=== PATIENT | female | born 1930 | race Caucasian/White ===

== ENCOUNTER 2017-12-19 11:35 | Inpatient (IN) | payer OTHER ==
[2017-12-19 11:52] VITALS: BMI 33.4
--- NOTE | 2017-12-19 11:59 | PDOC ---
History of Present Illness - General Chief Complaint: Respiratory Stated Complaint: COUGH, DIFF BREATHING, FEVER Time Seen by Provider: 12/19/17 11:39 History Source: Patient Exam Limitations: No Limitations - History of Present Illness Initial Comments: 87 yo F history HL, COPD on home O2, afib presenting with weakness, fever, difficulty breathing for the past few days. She has had poor appetite, poor PO intake. Notes SOB despite her home O2. +Dry cough. No N/V/D. Past History - Past Medical History Allergies/Adverse Reactions: Allergies Allergy/AdvReac Type Severity Reaction Status Date / Time clarithromycin [From Biaxin] Allergy Verified 12/19/17 14:06 nifedipine [From Procardia] Allergy Verified 12/19/17 11:37 penicillin G Allergy Verified 12/19/17 11:37 Penicillins Allergy Verified 12/19/17 14:07 rofecoxib [From Vioxx] Allergy Verified 12/19/17 11:37 rivaroxaban [From Xarelto] AdvReac Intermediate GI bleeding Verified 12/19/17 11 :37 furosemide [From Lasix] AdvReac Extreme Verified 12/19/17 11:37 fatigue Home Medications: Ambulatory Orders Warfarin Sodium [Coumadin] 4 mg PO ASDIR tablet 08/03/13 Beclomethasone Dipropionate [Qvar] 2 puff IH AM inhaler 06/27/15 Psyllium Husk [Metamucil] 0.52 gm PO 1-2 HS capsule 04/02/16 Hydrochlorothiazide 12.5 mg PO DAILY tablet 04/28/16 Diltiazem HCl 30 mg PO BID tablet 07/16/16 Loratadine [Claritin] 10 mg PO HS 12/19/17 Anemia: No Asthma: Yes Cancer: Yes (BENIGN TUMOR OVARY AND COLON) Cardiac Disorders: Yes (A FIB) CVA: No COPD: Yes CHF: No Dementia: No Diabetes: No GI Disorders: No Disorders: No HTN: Yes Hypercholesterolemia: Yes Liver Disease: No Seizures: No Thyroid Disease: Yes (THROID CYST) - Surgical History Abdominal Surgery: Yes (PARTIAL COLECTOMY) Appendectomy: No Cardiac Surgery: No Cholecystectomy: No Lung Surgery: No Neurologic Surgery: No Orthopedic Surgery: Yes - Immunization History Td Vaccination: No TDAP Vaccination: No Immunization Up to Date: No - Suicide/Smoking/Psychosocial Hx Smoking Status: No Smoking History: Never smoked Have you smoked in the past 12 months: No Number of Cigarettes Smoked Daily: 0 Cigars Per Day: 0 Hx Alcohol Use: No Drug/Substance Use Hx: No Substance Use Type: None Hx Substance Use Treatment: No Review of Systems - Review of Systems Able to Perform ROS?: Yes Comments:: GENERAL/CONSTITUTIONAL: +Fever/chills. +Weakness. HEAD, EYES, EARS, NOSE AND THROAT: No change in vision. No ear pain or discharge. No sore throat. CARDIOVASCULAR: No chest pain. +Shortness of breath. RESPIRATORY: +Cough. No wheezing or hemoptysis. GASTROINTESTINAL: No nausea, vomiting, diarrhea or constipation. GENITOURINARY: No dysuria, frequency, or change in urination. MUSCULOSKELETAL: No joint or muscle swelling or pain. No neck or back pain. SKIN: No rash NEUROLOGIC: No headache, vertigo, loss of consciousness, or change in strength/ sensation. ENDOCRINE: No increased thirst. No abnormal weight change. HEMATOLOGIC/LYMPHATIC: No anemia, easy bleeding, or history of blood clots. ALLERGIC/IMMUNOLOGIC: No hives or skin allergy. *Physical Exam - Vital Signs Last Vital Signs Temp Pulse Resp BP Pulse Ox 101.3 F H 65 20 129/80 98 12/19/17 11:35 12/19/17 11:35 12/19/17 11:35 12/19/17 11:35 12/19/17 11:35 - Physical Exam Comments: GENERAL: Awake, alert, and fully oriented, in no acute distress. Appears ill. Mild tachypnea. HEAD: No signs of trauma EYES: PERRLA, EOMI, sclera anicteric, conjunctiva clear ENT: Auricles normal inspection, hearing grossly normal, nares patent, oropharynx clear without exudates. Dry mucosa NECK: Normal ROM, supple, no lymphadenopathy, JVD, or masses LUNGS: Dec air entry B/L. No wheezes, rales. HEART: Regular rate and rhythm, normal S1 and S2, no murmurs, rubs or gallops ABDOMEN: Soft, nontender, normoactive bowel sounds. No guarding, no rebound. No masses EXTREMITIES: Normal range of motion, no edema. No clubbing or cyanosis. No cords, erythema, or tenderness NEUROLOGICAL: Cranial nerves II through XII grossly intact. Normal speech. Motor and sensation intact. SKIN: Warm, Dry, normal turgor, no rashes or lesions noted. ED Treatment Course - LABORATORY CBC & Chemistry Diagram: 12/19/17 12:00 12/19/17 12:00 Medical Decision Making - Medical Decision Making 12/19/17 12:17 Pt arrives with fever, weakness, respiratory symptoms. DDx includes flu, pneumonia. Sepsis protocol initiated. Will give antipyretics and nebs for symptomatic treatment. Anticipate admission. 12/19/17 13:54 Patient tested positive for flu A. I have already treated with tamiflu, as her symptoms started within 48 hrs. I have discussed with hospitalist for admission in light of her history of COPD with home O2, high risk patient. *DC/Admit/Observation/Transfer Diagnosis at time of Disposition: Influenza Fever Qualifiers: Fever type: unspecified Qualified Code(s): R50.9 - Fever, unspecified - Discharge Dispostion Condition at time of disposition: Stable Admit: Yes - Referrals Referrals: Rahul Sykes MD [Primary Care Provider] - - Patient Instructions - Post Discharge Activity
[2017-12-19] MEDS ORDERED: ACETAMINOPHEN 1000 MG/100 ML VIAL (NON FORMULARY) IVPB ONE (12:14)
[2017-12-19] MEDS: ALBUTEROL SO4 2.5/IPRATROPIUM 0.5 INH SOL 3 ML VIAL.NEB. NEB SCH ×3 (12:15→15:02)
[2017-12-19] MEDS ORDERED: ALBUTEROL SO4 2.5/IPRATROPIUM 0.5 INH SOL 3 ML VIAL.NEB. NEB SCH (12:15)
[2017-12-19] MEDS ORDERED: IPRATROPIUM BR 0.02% 0.5 MG/2.5 ML VIAL.NEB. NEB ONE (12:25)
[2017-12-19] MEDS ORDERED: ACETAMINOPHEN INJECTION 100 ML IVPB ONE (12:25)
[2017-12-19] MEDS ORDERED: ALBUTEROL SO4 0.083% IH SOL 2.5 MG/3 ML VIAL.NEB. NEB ONE (12:25)
[2017-12-19 12:42] LABS: HEMATOCRIT 31.6 % (32.4-45.2); HEMOGLOBIN 10.6 GM/dl (10.7-15.3); MCH 30.5 pg (25.7-33.7); MCHC 33.5 g/dl (32.0-36.0); MEAN PLT VOLUME 8.2 fl (7.5-11.1); PLATELET COUNT 129 K/MM3 (134-434); RBC 3.47 M/mm3 (3.60-5.2); RDW 13.2 % (11.6-15.6); WHITE BLOOD COUNT 2.6 K/mm3 (4.0-10.8)
[2017-12-19 12:43] LABS: ADD RBC MORPHOLOGY YES
[2017-12-19 12:56] LABS: ACTIVATED PTT 31.2 SECONDS (24.0-38.9); ALBUMIN 3.5 g/dl (3.5-5.0); ALK PHOS 44 U/L (32-92); ANION GAP 8 (8-16); BILIRUBIN,TOTAL 0.6 mg/dl (0.2-1.0); BLOOD UREA NITROGEN 24 mg/dl (7-18); CALCIUM 8.4 mg/dl (8.4-10.2); CHLORIDE 94 mmol/L (98-107); CO2 31 mmol/L (22-28); CREATININE 1.1 mg/dl (0.6-1.3); GLUCOSE,RANDOM 86 mg/dl (74-106); POTASSIUM 3.7 mmol/L (3.5-5.1); SGOT/AST 43 U/L (10-42); SGPT/ALT 28 U/L (10-40); SODIUM 133 mmol/L (136-145); TOT PROT 6.5 g/dl (6.4-8.3)
[2017-12-19 12:57] LABS: PH,URINE 6.5 (4.5-8); URINE APPEARANCE Clear; URINE BILIRUBIN Negative (NEGATIVE); URINE BLOOD Negative (NEGATIVE); URINE GLUCOSE (UA) Negative (NEGATIVE); URINE KETONE Negative (NEGATIVE); URINE LEUK ESTERASE Negative (NEGATIVE); URINE NITRITE Negative (NEGATIVE); URINE PROTEIN Trace (NEGATIVE); URINE UROBILINOGEN 0.2 (0.2-1.0)
[2017-12-19 12:58] LABS: URINE COLOR YELLOW
[2017-12-19 13:01] LABS: INR 1.5 (0.82-1.09); PROTHROMBIN TIME (PATIENT) 16.7 SEC (10.2-13.0)
[2017-12-19 13:23] LABS: VENOUS PO2 56.7 mmHg (28-48)
[2017-12-19 13:24] LABS: VENOUS PH 7.38 (7.32-7.42)
[2017-12-19] MEDS ORDERED: SODIUM CHLORIDE 500 ML IV STA (13:44)
[2017-12-19] MEDS ORDERED: OSELTAMIVIR PHOSPHATE 75 MG CAPSULE PO ONE (13:45)
[2017-12-19 13:51] LABS: PLATELET ESTIMATE DECREASED
[2017-12-19] MEDS ORDERED: OSELTAMIVIR PHOSPHATE 75 MG CAPSULE ONE (13:53)
--- NOTE | 2017-12-19 14:05 | HP ---
CHIEF COMPLAINT: Fever PCP: Dr. Sykes HISTORY OF PRESENT ILLNESS: This is an 87 year old female with a history of HLD , COPD on home O2, and Afib on warfarin/diltiazem who presented to the ED today with weakness, fever, dry cough, and shortness of breath for the past several days. She also notes that she has had poor difficulty breathing for the past few days. She has had poor appetite and little intake. She denies chest pain, palpitations, or any other symptoms. ER course was notable for: (1) SIRS (temp 101.3, WBC 2.6) (2) Pos influenza A (3) CXR: No infiltrates Recent Travel: None PAST MEDICAL HISTORY: As above PAST SURGICAL HISTORY: Partial colectomy for "benign tumor" Social History: Lives alone, independent in ADLs Smoking: Never smoker, exposed to second hand smoke form Alcohol: None Allergies nifedipine [From Procardia] Allergy (Verified 12/19/17 11:37) penicillin G Allergy (Verified 12/19/17 11:37) rofecoxib [From Vioxx] Allergy (Verified 12/19/17 11:37) rivaroxaban [From Xarelto] Adverse Reaction (Intermediate, Verified 12/19/17 11: 37) GI bleeding furosemide [From Lasix] Adverse Reaction (Verified 12/19/17 11:37) Extreme fatigue bioxin Allergy (Unknown, Uncoded 12/19/17 11:37) HOME MEDICATIONS: Home Medications Medication Instructions Recorded Warfarin Sodium [Coumadin] 4 mg PO ASDIR tablet 08/03/13 Beclomethasone Dipropionate [Qvar] 2 puff IH AM inhaler 06/27/15 Psyllium Husk [Metamucil] 0.52 gm PO 1-2 HS capsule 04/02/16 Hydrochlorothiazide 12.5 mg PO DAILY tablet 04/28/16 Diltiazem HCl 30 mg PO BID tablet 07/16/16 Loratadine [Claritin] 10 mg PO HS 12/19/17 REVIEW OF SYSTEMS CONSTITUTIONAL: Fevers/chills, malaise, generalized weakness, loss of appetite HEENT: Absent: rhinorrhea, nasal congestion, throat pain, throat swelling, difficulty swallowing, mouth swelling, ear pain, eye pain, visual changes CARDIOVASCULAR: Absent: chest pain, syncope, palpitations, irregular heart rate, lightheadedness , peripheral edema RESPIRATORY: Dry cough, shortness of breath despite O2 use, wheezing Absent: stridor, hemoptysis GASTROINTESTINAL: Absent: abdominal pain, abdominal distension, nausea, vomiting, diarrhea, constipation, melena, hematochezia GENITOURINARY: Absent: dysuria, frequency, urgency, hesitancy, hematuria, flank pain, genital pain MUSCULOSKELETAL: Bodyaches Absent: joint swelling, back pain, neck pain SKIN: Absent: rash, itching, pallor HEMATOLOGIC/IMMUNOLOGIC: On wardarin Absent: easy bleeding, easy bruising, lymphadenopathy, frequent infections ENDOCRINE: Absent: unexplained weight gain, unexplained weight loss, heat intolerance, cold intolerance NEUROLOGIC: Absent: headache, focal weakness or paresthesias, dizziness, unsteady gait, seizure, mental status changes, bladder or bowel incontinence PSYCHIATRIC: Absent: anxiety, depression, suicidal or homicidal ideation, hallucinations. PHYSICAL EXAMINATION Vital Signs - 24 hr 12/19/17 11:35 Temperature 101.3 F H Pulse Rate 65 Respiratory 20 Rate Blood Pressure 129/80 O2 Sat by Pulse 98 Oximetry (%) GENERAL: Awake, alert, and fully oriented, in no acute distress. HEAD: Normal with no signs of trauma. EYES: Pupils equal, round and reactive to light, extraocular movements intact, sclera anicteric, conjunctiva clear. No lid lag. EARS, NOSE, THROAT: Ears normal, nares patent, oropharynx clear without exudates. Moist mucous membranes. NECK: Normal range of motion, supple without lymphadenopathy, JVD, or masses. LUNGS: Expiratory wheezing bilaterally, mild tachypnea. HEART: Regular rate and rhythm, normal S1 and S2 without murmur, rub or gallop. ABDOMEN: Soft, nontender, not distended, normoactive bowel sounds, no guarding, no rebound, no masses. No hepatomegaly or splenomegaly. MUSCULOSKELETAL: Normal range of motion at all joints. No bony deformities or tenderness. No CVA tenderness. UPPER EXTREMITIES: 2+ pulses, warm, well-perfused. No cyanosis. No clubbing. No peripheral edema. LOWER EXTREMITIES: 2+ pulses, warm, well-perfused. No calf tenderness. No peripheral edema. NEUROLOGICAL: Cranial nerves II-XII intact. Normal speech. Normal gait. PSYCHIATRIC: Cooperative. Good eye contact. Appropriate mood and affect. SKIN: Warm, dry, normal turgor, no rashes or lesions noted, normal capillary refill. Laboratory Results - last 24 hr 12/19/17 12/19/17 12/19/17 12:00 12:00 12:00 WBC 2.6 L RBC 3.47 L Hgb 10.6 L Hct 31.6 L MCV 91.0 MCH 30.5 MCHC 33.5 RDW 13.2 Plt Count 129 L MPV 8.2 Neutrophils % No Result Required. Neutrophils % (Manual) 44.0 Lymphocytes % No Result Required. Lymphocytes % (Manual) 40.0 Monocytes % (Manual) 16 H* Platelet Estimate Decreased PT with INR 16.7 H INR 1.50 H PTT (Actin FS) 31.2 VBG pH 7.38 POC VBG pCO2 59.0 H POC VBG pO2 56.7 H Mixed VBG HCO3 33.3 H Sodium Potassium Chloride Carbon Dioxide Anion Gap BUN Creatinine Creat Clearance w eGFR Random Glucose Calcium Total Bilirubin AST ALT Alkaline Phosphatase Creatine Kinase Creatine Kinase Index CK-MB (CK-2) Troponin I Total Protein Albumin Urine Color Urine Appearance Urine pH Ur Specific [place] Urine Protein Urine Glucose (UA) Urine Ketones Urine Blood Urine Nitrite Urine Bilirubin Urine Urobilinogen Ur Leukocyte Esterase 12/19/17 12/19/17 12/19/17 12:00 12:00 12:00 WBC RBC Hgb Hct MCV MCH MCHC RDW Plt Count MPV Neutrophils % Neutrophils % (Manual) Lymphocytes % Lymphocytes % (Manual) Monocytes % (Manual) Platelet Estimate PT with INR INR PTT (Actin FS) VBG pH POC VBG pCO2 POC VBG pO2 Mixed VBG HCO3 Sodium 133 L Potassium 3.7 Chloride 94 L Carbon Dioxide 31 H Anion Gap 8 BUN 24 H Creatinine 1.1 D Creat Clearance w eGFR 46.77 Random Glucose 86 Calcium 8.4 Total Bilirubin 0.6 AST 43 H D ALT 28 D Alkaline Phosphatase 44 Creatine Kinase 228 H Creatine Kinase Index 0.7 CK-MB (CK-2) 1.7 Troponin I 0.06 Total Protein 6.5 Albumin 3.5 Urine Color Urine Appearance Urine pH Ur Specific [place] Urine Protein Urine Glucose (UA) Urine Ketones Urine Blood Urine Nitrite Urine Bilirubin Urine Urobilinogen Ur Leukocyte Esterase 12/19/17 12:50 WBC RBC Hgb Hct MCV MCH MCHC RDW Plt Count MPV Neutrophils % Neutrophils % (Manual) Lymphocytes % Lymphocytes % (Manual) Monocytes % (Manual) Platelet Estimate PT with INR INR PTT (Actin FS) VBG pH POC VBG pCO2 POC VBG pO2 Mixed VBG HCO3 Sodium Potassium Chloride Carbon Dioxide Anion Gap BUN Creatinine Creat Clearance w eGFR Random Glucose Calcium Total Bilirubin AST ALT Alkaline Phosphatase Creatine Kinase Creatine Kinase Index CK-MB (CK-2) Troponin I Total Protein Albumin Urine Color Yellow Urine Appearance Clear Urine pH 6.5 Ur Specific [place] 1.020 Urine Protein Trace Urine Glucose (UA) Negative Urine Ketones Negative Urine Blood Negative Urine Nitrite Negative Urine Bilirubin Negative Urine Urobilinogen 0.2 Ur Leukocyte Esterase Negative ASSESSMENT/PLAN: 87 year old female with COPD exacerbation, influenza A, and sepsis. 1. Sepsis secondary to influenza -Tamiflu 30mg bid per CrCl -Normal saline 100 mLs/hr; hold HCTZ -Acetaminophen prn fever -Follow up blood cultures -Low threshold to repeat CXR or obtain CT chest if worsening 2. COPD exacerbation -Solu-Medrol 40mg IVPB bid -Albuterol nebs q6h standing -Substitute Asmanex for home Qvar -Continue supplemental O2 3. Afib -SR currently -Continue diltiazem -INR is sub-therapeutic; 6mg warfarin tonight, follow INR 4. Ppx -Therapeutic AC DISPO: Requires inpatient services
[2017-12-19] MEDS ORDERED: ACETAMINOPHEN 325 MG TABLET (FP) PO PRN (14:34)
[2017-12-19] MEDS ORDERED: ONDANSETRON 4 MG/2 ML VIAL IVPUSH PRN (14:36)
[2017-12-19] MEDS ORDERED: PATIENT'S OWN MEDICATION (NON-FORMULARY) (Warfarin Sodium [Coumadin] 4 MG) PO SCH (14:45)
[2017-12-19] MEDS: SODIUM CHLORIDE 1,000 ML IV SCH (15:30)
[2017-12-19] MEDS: ALBUTEROL SO4 0.083% IH SOL 2.5 MG/3 ML VIAL.NEB. NEB SCH ×2 (16:00→21:22)
[2017-12-19] MEDS ORDERED: WARFARIN NA 5 MG TABLET (UD) ONE (17:54)
[2017-12-19] MEDS ORDERED: WARFARIN NA 1 MG TABLET (FP) ONE (17:55)
[2017-12-19] MEDS ORDERED: WARFARIN NA 5 MG TABLET (UD) PO ONE (18:00)
[2017-12-19] MEDS ORDERED: WARFARIN NA 5 MG, WARFARIN NA 1 MG PO ONE (18:00)
[2017-12-19] MEDS ORDERED: PT OWN MED DRAWER 7, Y5N ONE (18:56)
[2017-12-19] MEDS: DOCUSATE SODIUM 100 MG CAPSULE (FP) PO SCH (21:23)
[2017-12-19] MEDS: LORATADINE 10 MG TABLET PO SCH (21:23)
[2017-12-19] MEDS: methylPREDNISolone NA SUCC 125 MG/2 ML VIAL IVPUSH SCH (21:23)
[2017-12-19] MEDS: OSELTAMIVIR PHOSPHATE 30 MG CAPSULE PO SCH (21:24)
[2017-12-19] MEDS: dilTIAZem HCL 30 MG TABLET (FP) PO SCH (21:42)
[2017-12-19] MEDS ORDERED: OSELTAMIVIR PHOSPHATE 75 MG CAPSULE PO SCH (22:00)
[2017-12-19] MEDS ORDERED: HEPARIN NA (PORCINE) 5,000 UNITS/ML 1ML VIAL SQ SCH (22:00)
[2017-12-20] MEDS: ALBUTEROL SO4 0.083% IH SOL 2.5 MG/3 ML VIAL.NEB. NEB SCH ×5 (02:50→21:36)
[2017-12-20] MEDS: DOCUSATE SODIUM 100 MG CAPSULE (FP) PO SCH ×3 (06:31→21:35)
[2017-12-20 08:46] LABS: BASO % 0.2 % (0-2.0); EOS % 0.3 % (0-4.5); HEMATOCRIT 32.2 % (32.4-45.2); HEMOGLOBIN 10.4 GM/dl (10.7-15.3); LYMPH % 29.6 % (8-40); MCH 30.3 pg (25.7-33.7); MCHC 32.4 g/dl (32.0-36.0); MEAN CELL VOLUME 93.6 fl (80-96); MEAN PLT VOLUME 8.5 fl (7.5-11.1); MONO % 3.4 % (3.8-10.2); NEUT % 66.5 % (42.8-82.8); PLATELET COUNT 134 K/MM3 (134-434); RBC 3.45 M/mm3 (3.60-5.2)
[2017-12-20 08:54] LABS: WHITE BLOOD COUNT 1.4 K/mm3 (4.0-10.8)
[2017-12-20 08:58] LABS: ALBUMIN 3.1 g/dl (3.5-5.0); ALK PHOS 42 U/L (32-92); ANION GAP 5 (8-16); BILIRUBIN,TOTAL 0.4 mg/dl (0.2-1.0); BLOOD UREA NITROGEN 22 mg/dl (7-18); CALCIUM 8.1 mg/dl (8.4-10.2); CHLORIDE 102 mmol/L (98-107); CO2 30 mmol/L (22-28); CREATININE 0.9 mg/dl (0.6-1.3); GLUCOSE,RANDOM 143 mg/dl (74-106); MAGNESIUM 1.7 mg/dL (1.8-2.4); POTASSIUM 4.1 mmol/L (3.5-5.1); SGOT/AST 41 U/L (10-42); SGPT/ALT 30 U/L (10-40); SODIUM 137 mmol/L (136-145); TOT PROT 6.2 g/dl (6.4-8.3)
[2017-12-20] MEDS ORDERED: MOMETASONE FUROATE 220 MCG/IH INHALER IH SCH (10:00)
[2017-12-20] MEDS ORDERED: AZITHROMYCIN 500 MG VIAL IVPB ONE (10:01)
[2017-12-20] MEDS ORDERED: PT OWN MED DRAWER 7, Y5N ONE ×3 (10:03→12:43)
--- NOTE | 2017-12-20 10:09 | PN ---
Physical Exam: SUBJECTIVE: Patient seen and examined and appears to have improved. She is AAOx3, no sob, on 2 L NC, satting well, no dyspnea when talking, ate full breakfast and states she is feeling much better. OBJECTIVE: Vital Signs Period Temp Pulse Resp BP Sys/Awad Pulse Ox Last 24 Hr 98.0 F-101.3 F 50-65 18-20 101-150/48-80 95-99 GENERAL: The patient is awake, alert, and fully oriented, in no acute distress. NECK: Trachea midline, full range of motion, supple. LUNGS: Breath sounds diminished at base, clear to auscultation bilaterally, no wheezes, no crackles, no accessory muscle use. on 2 L NC HEART: irregular rate and rhythm for chronic AF. ABDOMEN: Soft, nontender, nondistended, normoactive bowel sounds, no guarding, no rebound, no hepatosplenomegaly, no masses tolerating a regular diet EXTREMITIES: 2+ pulses, warm, well-perfused, no edema. NEUROLOGICAL: Cranial nerves II through XII grossly intact. Normal speech, gait not observed. PSYCH: Normal mood, normal affect. SKIN: Warm, dry, normal turgor, no rashes or lesions noted Laboratory Results - last 24 hr 12/19/17 12/19/17 12/19/17 12:00 12:00 12:00 WBC 2.6 L RBC 3.47 L Hgb 10.6 L Hct 31.6 L MCV 91.0 MCH 30.5 MCHC 33.5 RDW 13.2 Plt Count 129 L MPV 8.2 Neutrophils % No Result Required. Neutrophils % (Manual) 44.0 Lymphocytes % No Result Required. Lymphocytes % (Manual) 40.0 Monocytes % Monocytes % (Manual) 16 H* Eosinophils % Basophils % Platelet Estimate Decreased PT with INR 16.7 H INR 1.50 H PTT (Actin FS) 31.2 VBG pH 7.38 POC VBG pCO2 59.0 H POC VBG pO2 56.7 H Mixed VBG HCO3 33.3 H Sodium Potassium Chloride Carbon Dioxide Anion Gap BUN Creatinine Creat Clearance w eGFR Random Glucose Lactic Acid Calcium Magnesium Total Bilirubin AST ALT Alkaline Phosphatase Creatine Kinase Creatine Kinase Index CK-MB (CK-2) Troponin I Total Protein Albumin Urine Color Urine Appearance Urine pH Ur Specific [place] Urine Protein Urine Glucose (UA) Urine Ketones Urine Blood Urine Nitrite Urine Bilirubin Urine Urobilinogen Ur Leukocyte Esterase 12/19/17 12/19/17 12/19/17 12:00 12:00 12:00 WBC RBC Hgb Hct MCV MCH MCHC RDW Plt Count MPV Neutrophils % Neutrophils % (Manual) Lymphocytes % Lymphocytes % (Manual) Monocytes % Monocytes % (Manual) Eosinophils % Basophils % Platelet Estimate PT with INR INR PTT (Actin FS) VBG pH POC VBG pCO2 POC VBG pO2 Mixed VBG HCO3 Sodium 133 L Potassium 3.7 Chloride 94 L Carbon Dioxide 31 H Anion Gap 8 BUN 24 H Creatinine 1.1 D Creat Clearance w eGFR 46.77 Random Glucose 86 Lactic Acid Calcium 8.4 Magnesium Total Bilirubin 0.6 AST 43 H D ALT 28 D Alkaline Phosphatase 44 Creatine Kinase 228 H Creatine Kinase Index 0.7 CK-MB (CK-2) 1.7 Troponin I 0.06 Total Protein 6.5 Albumin 3.5 Urine Color Urine Appearance Urine pH Ur Specific [place] Urine Protein Urine Glucose (UA) Urine Ketones Urine Blood Urine Nitrite Urine Bilirubin Urine Urobilinogen Ur Leukocyte Esterase 12/19/17 12/19/17 12/20/17 12:24 12:50 06:46 WBC RBC Hgb Hct MCV MCH MCHC RDW Plt Count MPV Neutrophils % Neutrophils % (Manual) Lymphocytes % Lymphocytes % (Manual) Monocytes % Monocytes % (Manual) Eosinophils % Basophils % Platelet Estimate PT with INR INR PTT (Actin FS) VBG pH POC VBG pCO2 POC VBG pO2 Mixed VBG HCO3 Sodium 137 Potassium 4.1 Chloride 102 Carbon Dioxide 30 H Anion Gap 5 L BUN 22 H Creatinine 0.9 Creat Clearance w eGFR 58.95 Random Glucose 143 H D Lactic Acid 0.8 Calcium 8.1 L Magnesium 1.7 L Total Bilirubin 0.4 D AST 41 ALT 30 Alkaline Phosphatase 42 Creatine Kinase Creatine Kinase Index CK-MB (CK-2) Troponin I Total Protein 6.2 L Albumin 3.1 L Urine Color Yellow Urine Appearance Clear Urine pH 6.5 Ur Specific [place] 1.020 Urine Protein Trace Urine Glucose (UA) Negative Urine Ketones Negative Urine Blood Negative Urine Nitrite Negative Urine Bilirubin Negative Urine Urobilinogen 0.2 Ur Leukocyte Esterase Negative 12/20/17 08:00 WBC 1.4 L* D RBC 3.45 L Hgb 10.4 L Hct 32.2 L MCV 93.6 MCH 30.3 MCHC 32.4 RDW 13.0 Plt Count 134 MPV 8.5 Neutrophils % 66.5 Neutrophils % (Manual) Lymphocytes % 29.6 Lymphocytes % (Manual) Monocytes % 3.4 L Monocytes % (Manual) Eosinophils % 0.3 Basophils % 0.2 Platelet Estimate PT with INR INR PTT (Actin FS) VBG pH POC VBG pCO2 POC VBG pO2 Mixed VBG HCO3 Sodium Potassium Chloride Carbon Dioxide Anion Gap BUN Creatinine Creat Clearance w eGFR Random Glucose Lactic Acid Calcium Magnesium Total Bilirubin AST ALT Alkaline Phosphatase Creatine Kinase Creatine Kinase Index CK-MB (CK-2) Troponin I Total Protein Albumin Urine Color Urine Appearance Urine pH Ur Specific [place] Urine Protein Urine Glucose (UA) Urine Ketones Urine Blood Urine Nitrite Urine Bilirubin Urine Urobilinogen Ur Leukocyte Esterase Active Medications Generic Name Dose Route Start Last Admin Trade Name Freq PRN Reason Stop Dose Admin Acetaminophen 650 mg 12/19/17 14:34 Tylenol - PO Q4H PRN FEVER Albuterol Sulfate 1 amp 12/19/17 15:00 12/20/17 02:57 Ventolin 0.083% Nebulizer Soln - NEB Not Given Q6H LEYLA Diltiazem HCl 30 mg 12/19/17 22:00 12/19/17 21:42 Cardizem - PO Not Given BID LEYLA Docusate Sodium 100 mg 12/19/17 22:00 12/20/17 06:31 Colace - PO Not Given TID LEYLA Sodium Chloride 1,000 mls @ 100 mls/hr 12/19/17 14:45 12/19/17 15:30 Normal Saline - IV 100 mls/hr ASDIR LEYLA Administration Loratadine 10 mg 12/19/17 22:00 12/19/17 21:23 Claritin - PO 10 mg HS LEYLA Administration Losartan Potassium 100 mg 12/20/17 10:00 Losartan Potassium PO DAILY LEYLA Methylprednisolone Sodium Succinate 40 mg 12/19/17 22:00 12/19/17 21:23 Solu-Medrol - IVPUSH 40 mg BID LEYLA Administration Mometasone Furoate 1 puff 12/20/17 10:00 Asmanex 220mcg - IH DAILY LEYLA Ondansetron HCl 4 mg 12/19/17 14:36 Zofran Injection IVPUSH Q6H PRN NAUSEA Oseltamivir Phosphate 30 mg 12/19/17 22:00 12/19/17 21:24 Tamiflu - PO 02/08/18 21:59 30 mg BID [facility] Administration Ranitidine HCl 300 mg 12/20/17 10:00 Zantac - PO DAILY [facility] Warfarin Sodium 4 mg 12/20/17 18:00 Coumadin - PO DAILY@1800 [facility] ASSESSMENT/PLAN: Problem List - Problems (1) Neutropenia associated with infectious disease Assessment/Plan: -WBC today down to 1.4, remains on isolation -with + flu A on tamiflu -no found infiltrates on CXR but with hx of COPD, home O2, and neutropenia, will start a dose of azithro for ? CAP -afebrile today Code(s): D70.3 - NEUTROPENIA DUE TO INFECTION (2) Influenza Assessment/Plan: -continue on tamiflu as ordered -continue to have droplet isolations -hydration -monitor respiratory status Code(s): J11.1 - FLU DUE TO UNIDENTIFIED INFLUENZA VIRUS W OTH RESP MANIFEST (3) Afib Assessment/Plan: -continue on coumadin as directed by PT levels -with abt use and illness, may affect dosing -remains stable controlled af Code(s): I48.91 - UNSPECIFIED ATRIAL FIBRILLATION (4) COPD (chronic obstructive pulmonary disease) Assessment/Plan: -continue on home o2 dose -spot monitor oxygen sat Q4-6 -tapering solumedrol Code(s): J44.9 - CHRONIC OBSTRUCTIVE PULMONARY DISEASE, UNSPECIFIED Qualifiers: COPD type: COPD with acute lower respiratory infection Qualified Code(s): J44.0 - Chronic obstructive pulmonary disease with acute lower respiratory infection (5) HTN (hypertension) Assessment/Plan: -continue cardizem and losartin Code(s): I10 - ESSENTIAL (PRIMARY) HYPERTENSION (6) Hyperlipidemia Code(s): E78.5 - HYPERLIPIDEMIA, UNSPECIFIED Visit type - Emergency Visit Emergency Visit: Yes ED Registration Date: 12/19/17 Care time: The patient presented to the Emergency Department on the above date and was hospitalized for further evaluation of their emergent condition. - New Patient This patient is new to me today: Yes Date on this admission: 12/20/17 - Critical Care Critical Care patient: No - Discharge Referral Referred to [facility] Med P.C.: No
[2017-12-20] MEDS: OSELTAMIVIR PHOSPHATE 30 MG CAPSULE PO SCH ×2 (10:21→21:35)
[2017-12-20] MEDS: RANITIDINE HCL 150 MG TABLET (FP) PO SCH (10:21)
[2017-12-20] MEDS: methylPREDNISolone NA SUCC 125 MG/2 ML VIAL IVPUSH SCH ×2 (10:21→21:36)
[2017-12-20] MEDS: MOMETASONE FUROATE 220 MCG/IH INHALER IH SCH (10:22)
[2017-12-20] MEDS: dilTIAZem HCL 30 MG TABLET (FP) PO SCH ×2 (10:22→21:35)
[2017-12-20 10:23] LABS: INR 1.9 (0.82-1.09); PROTHROMBIN TIME (PATIENT) 17.6 SEC (10.2-13.0)
[2017-12-20] MEDS ORDERED: AZITHROMYCIN IVPB 500 MG in DEXTROSE 5%-WATER - 250 ML IVPB ONE (12:00)
[2017-12-20] MEDS: LOSARTAN POTASSIUM 100 MG TABLET PO SCH ×2 (12:53→13:16)
[2017-12-20] MEDS: AZITHROMYCIN IVPB 500 MG/250 ML D5W PRE-DOCKED IVPB SCH (13:11)
[2017-12-20] MEDS: SODIUM CHLORIDE 1,000 ML IV SCH (15:45)
[2017-12-20] MEDS: WARFARIN NA 2 MG TABLET (UD) PO SCH (17:19)
[2017-12-20] MEDS: LORATADINE 10 MG TABLET PO SCH (21:35)
[2017-12-21] MEDS: ALBUTEROL SO4 0.083% IH SOL 2.5 MG/3 ML VIAL.NEB. NEB SCH ×4 (04:05→21:34)
[2017-12-21] MEDS: DOCUSATE SODIUM 100 MG CAPSULE (FP) PO SCH ×4 (06:10→21:34)
--- NOTE | 2017-12-21 06:39 | PN ---
Physical Exam: SUBJECTIVE: Patient seen and examined. Feeling better, but still with cough productive of white sputum and wheezing. No fevers/chills. Has not gotten out of bed except to commode. OBJECTIVE: Vital Signs Period Temp Pulse Resp BP Sys/Awad Pulse Ox Last 24 Hr 97.7 F-98.5 F 43-65 19-20 113-157/42-92 94-98 GENERAL: The patient is awake, alert, and fully oriented, in no acute distress. HEAD: Normal with no signs of trauma. EYES: PERRL, extraocular movements intact, sclera anicteric, conjunctiva clear. No ptosis. ENT: Ears normal, nares patent, oropharynx clear without exudates, moist mucous membranes. NECK: Trachea midline, full range of motion, supple. LUNGS: End expiratory wheezing in all lung hussein, no tachypnea, speaking in full sentences. HEART: Regular rate and rhythm, S1, S2 without murmur, rub or gallop. ABDOMEN: Soft, nontender, nondistended, normoactive bowel sounds, no guarding, no rebound, no hepatosplenomegaly, no masses. EXTREMITIES: 2+ pulses, warm, well-perfused, no edema. NEUROLOGICAL: Cranial nerves II through XII grossly intact. Normal speech, gait not observed. PSYCH: Normal mood, normal affect. SKIN: Warm, dry, normal turgor, no rashes or lesions noted Laboratory Results - last 24 hr 12/20/17 12/20/17 12/20/17 06:46 06:46 08:00 WBC 1.4 L* D RBC 3.45 L Hgb 10.4 L Hct 32.2 L MCV 93.6 MCH 30.3 MCHC 32.4 RDW 13.0 Plt Count 134 MPV 8.5 Neutrophils % 66.5 Lymphocytes % 29.6 Monocytes % 3.4 L Eosinophils % 0.3 Basophils % 0.2 PT with INR 17.6 H INR 1.90 H Sodium 137 Potassium 4.1 Chloride 102 Carbon Dioxide 30 H Anion Gap 5 L BUN 22 H Creatinine 0.9 Creat Clearance w eGFR 58.95 Random Glucose 143 H D Calcium 8.1 L Magnesium 1.7 L Total Bilirubin 0.4 D AST 41 ALT 30 Alkaline Phosphatase 42 Total Protein 6.2 L Albumin 3.1 L Active Medications Generic Name Dose Route Start Last Admin Trade Name Freq PRN Reason Stop Dose Admin Acetaminophen 650 mg 12/19/17 14:34 Tylenol - PO Q4H PRN FEVER Albuterol Sulfate 1 amp 12/19/17 15:00 12/21/17 04:05 Ventolin 0.083% Nebulizer Soln - NEB 1 amp Q6H LEYLA Administration Azithromycin 500 mg 12/20/17 14:00 12/20/17 13:11 Zithromax 500mg Ivpb (Pre-Docked) IVPB 500 mg DAILY [facility] Administration Diltiazem HCl 30 mg 12/19/17 22:00 12/20/17 21:35 Cardizem - PO 30 mg BID [facility] Administration Docusate Sodium 100 mg 12/19/17 22:00 12/21/17 06:10 Colace - PO Not Given TID [facility] Sodium Chloride 1,000 mls @ 100 mls/hr 12/19/17 14:45 12/20/17 15:45 Normal Saline - IV 100 mls/hr ASDIR [facility] Administration Loratadine 10 mg 12/19/17 22:00 12/20/17 21:35 Claritin - PO 10 mg HS [facility] Administration Losartan Potassium 100 mg 12/20/17 10:00 12/20/17 13:16 Losartan Potassium PO 100 mg DAILY [facility] Administration Methylprednisolone Sodium Succinate 40 mg 12/21/17 10:00 Solu-Medrol - IVPUSH DAILY [facility] Mometasone Furoate 1 puff 12/20/17 10:00 12/20/17 10:22 Asmanex 220mcg - IH 1 puff DAILY [facility] Administration Ondansetron HCl 4 mg 12/19/17 14:36 Zofran Injection IVPUSH Q6H PRN NAUSEA Oseltamivir Phosphate 30 mg 12/19/17 22:00 12/20/17 21:35 Tamiflu - PO 12/24/17 21:59 30 mg BID [facility] Administration Ranitidine HCl 300 mg 12/20/17 10:00 12/20/17 10:21 Zantac - PO 300 mg DAILY [facility] Administration Warfarin Sodium 4 mg 12/20/17 18:00 12/20/17 17:19 Coumadin - PO 4 mg DAILY@1800 LEYLA Administration Microbiology 12/19/17 12:15 Blood - Peripheral Venous Blood Culture - Preliminary NO GROWTH OBTAINED AFTER 24 HOURS, INCUBATION TO CONTINUE FOR 4 DAYS. 12/19/17 12:00 Blood - Peripheral Venous Blood Culture - Preliminary NO GROWTH OBTAINED AFTER 24 HOURS, INCUBATION TO CONTINUE FOR 4 DAYS. 12/19/17 12:00 Nasopharyngeal Swab Influenza Types A,B Antigen (LUISA) - Final 12/19/17 12:00 Nasopharyngeal Swab - Final ASSESSMENT/PLAN: 87 year old female with COPD exacerbation, influenza A, and sepsis. 1. Sepsis secondary to influenza -Tamiflu 30 mg bid for CrCl <60 -Placed on empiric azithromycin 2/4 as well -Normal saline 100 mLs/hr; hold HCTZ -Acetaminophen prn fever -Follow up blood cultures, negative to date -Low threshold to repeat CXR or obtain CT chest if worsening -Will request ID evaluation given leukopenia and mild neutropenia, likely secondary to viral infection 2. COPD exacerbation, symptoms improving -Solu-Medrol 40mg IVPB daily -Albuterol nebs q6h standing -Substitute Asmanex for home Qvar -Continue supplemental O2 3. Afib -SR currently -Hold diltiazem for bradycardia -Continue warfardin per INR 4. Ppx -Therapeutic AC DISPO: Requires inpatient services Visit type - Emergency Visit Emergency Visit: Yes ED Registration Date: 12/19/17 Care time: The patient presented to the Emergency Department on the above date and was hospitalized for further evaluation of their emergent condition. - New Patient This patient is new to me today: No - Critical Care Critical Care patient: No - Discharge Referral Referred to [facility] Med P.C.: No
--- NOTE | 2017-12-21 09:03 | PN ---
Progress Note (short form) - Note Progress Note: ID Consult dictated Acute influenza A Exacerbation COPD Leukopenia secondary to viral infection ? Secondary bacterial infection PCN/ macrolide allergies Tamiflu, empiric levaquin Droplet precautions
[2017-12-21 09:15] LABS: BASO % 0.1 % (0-2.0); HEMATOCRIT 31.6 % (32.4-45.2); HEMOGLOBIN 10.3 GM/dl (10.7-15.3); LYMPH % 14.1 % (8-40); MCHC 32.5 g/dl (32.0-36.0); MEAN CELL VOLUME 95.2 fl (80-96); MEAN PLT VOLUME 8.3 fl (7.5-11.1); MONO % 6.2 % (3.8-10.2); NEUT % 79.6 % (42.8-82.8); PLATELET COUNT 132 K/MM3 (134-434); RBC 3.32 M/mm3 (3.60-5.2); RDW 13.5 % (11.6-15.6); WHITE BLOOD COUNT 3.2 K/mm3 (4.0-10.8)
[2017-12-21] MEDS ORDERED: PT OWN MED DRAWER 7, Y5N ONE ×2 (09:22→09:33)
[2017-12-21] MEDS: RANITIDINE HCL 150 MG TABLET (FP) PO SCH (09:24)
[2017-12-21] MEDS: methylPREDNISolone NA SUCC 40 MG/1 ML VIAL IVPUSH SCH (09:25)
[2017-12-21] MEDS: LOSARTAN POTASSIUM 50 MG TABLET (FP) PO SCH (09:25)
[2017-12-21] MEDS: MOMETASONE FUROATE 220 MCG/IH INHALER IH SCH (09:25)
[2017-12-21] MEDS ORDERED: OSELTAMIVIR PHOSPHATE 75 MG CAPSULE PO SCH (10:00)
[2017-12-21] MEDS ORDERED: AZITHROMYCIN IVPB 250 MG in DEXTROSE 5%-WATER - 250 ML IVPB SCH (10:00)
[2017-12-21 10:07] LABS: INR 2.72 (0.82-1.09); PROTHROMBIN TIME (PATIENT) 29.9 SEC (10.2-13.0)
[2017-12-21 10:13] LABS: ALBUMIN 3.1 g/dl (3.5-5.0); ALK PHOS 40 U/L (32-92); ANION GAP 9 (8-16); BILIRUBIN,TOTAL 0.3 mg/dl (0.2-1.0); BLOOD UREA NITROGEN 20 mg/dl (7-18); CALCIUM 8.1 mg/dl (8.4-10.2); CHLORIDE 104 mmol/L (98-107); CO2 27 mmol/L (22-28); CREATININE 0.8 mg/dl (0.6-1.3); GLUCOSE,RANDOM 132 mg/dl (74-106); MAGNESIUM 1.8 mg/dL (1.8-2.4); PHOSPHOROUS 2.7 mg/dl (2.5-4.6); POTASSIUM 4.1 mmol/L (3.5-5.1); SGOT/AST 32 U/L (10-42); SGPT/ALT 25 U/L (10-40); SODIUM 140 mmol/L (136-145); TOT PROT 6.2 g/dl (6.4-8.3)
--- NOTE | 2017-12-21 10:47 | CONS ---
DATE OF CONSULTATION: HISTORY: The patient is an 87-year-old female who was evaluated for acute influenza A. The patient was admitted to the hospital on December 19, 2017 with complaints of worsening shortness of breath, generalized weakness, subjective fever, dry cough, and anorexia. In the emergency room, she was noted to have fever of 101.3. An influenza swab was performed and was positive for influenza A. She was started on Tamiflu. In addition, she was started on Zithromax for possible secondary bacterial infection. She reports cough productive of yellowish sputum. She denies any chest pain. She is chronically dyspneic at rest. She has a history of COPD on home oxygen. The patient lives alone. She denies any ill contacts at home. No recent hospitalizations. She does attend a [employer] activity center and may have been exposed to persons with respiratory tract illnesses. She did receive influenza vaccine this year. PAST MEDICAL HISTORY: Positive for oxygen-dependent COPD, atrial fibrillation, hyperlipidemia. 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 ALLERGIES: PENICILLIN, CLARITHROMYCIN, NIFEDIPINE, VIOXX, XARELTO, LASIX. With respect to the PENICILLIN allergy, she reports rash. MEDICATIONS: Include Coumadin, hydrochlorothiazide, diltiazem, Claritin, Qvar. SOCIAL HISTORY: Lives alone. Nonsmoker. She is a . She reports being exposed to 2nd-hand smoke during her lifetime. No recent travel or pet exposure. SYSTEMS REVIEW: Neurologic: No loss of consciousness, seizure activity, focal weakness. Cardiac: Negative chest pain or palpitations. Respiratory: As per HPI. Gastrointestinal: Negative vomiting or diarrhea. Genitourinary: Negative for urinary tract infection. LABORATORY DATA: 97.7. White blood cell count 1.4 with 66 neutrophils, 29 lymphocytes, 3 monocytes, hematocrit 32.2, platelet count 134, BUN 22, creatinine 0.9. Chest x-ray negative. Urine leukocyte esterase negative. PHYSICAL EXAMINATION: Vital Signs: T-max 101.3, blood pressure 157/92, pulse 43 and regular, respirations 20 per minute. HEENT: Sclerae anicteric. Dry mucous membranes. Heart: Sounds S1, S2. Lungs: Crepitations at the bases bilaterally. Abdomen: Soft. Obese. No mass, rebound, or rigidity. Extremities: Positive for edema. IMPRESSION: 1. Acute influenza A. 2. Exacerbation of chronic obstructive pulmonary disease. 3. Leukopenia secondary to viral illness. 4. Possible secondary bacterial infection. 5. PENICILLIN and MACROLIDE allergies. PLAN: Continue Tamiflu for treatment of acute influenza A. Droplet precautions. Empiric Levaquin for possible bacterial secondary infection pending cultures. We will follow. Thank you for the kind referral. [place] M.D. [id number]
[2017-12-21] MEDS: OSELTAMIVIR PHOSPHATE 30 MG CAPSULE PO SCH ×2 (11:14→21:34)
--- NOTE | 2017-12-21 13:59 | EKG ---
Test Reason : Blood Pressure : / mmHG Vent. Rate : 056 BPM Atrial Rate : 056 BPM P-R Int : 176 ms QRS Dur : 086 ms QT Int : 442 ms P-R-T Axes : 011 -27 -12 degrees QTc Int : 426 ms SINUS BRADYCARDIA MODERATE VOLTAGE CRITERIA FOR LVH, MAY BE NORMAL VARIANT NONSPECIFIC T WAVE ABNORMALITY NO PREVIOUS ECGS AVAILABLE Confirmed by JANUARY GALVAN MD ([id number]) on 12/21/2017 1:58:35 PM Referred By: SP SONG Confirmed By:JANUARY GALVAN MD
[2017-12-21] MEDS: AZITHROMYCIN IVPB 500 MG/250 ML D5W PRE-DOCKED IVPB SCH (16:47)
[2017-12-21] MEDS: WARFARIN NA 2 MG TABLET (UD) PO SCH (17:50)
[2017-12-21] MEDS: SODIUM CHLORIDE 1,000 ML IV SCH (17:52)
[2017-12-21] MEDS: LORATADINE 10 MG TABLET PO SCH (21:34)
[2017-12-22] MEDS: ALBUTEROL SO4 0.083% IH SOL 2.5 MG/3 ML VIAL.NEB. NEB SCH ×4 (03:00→21:40)
[2017-12-22] MEDS: DOCUSATE SODIUM 100 MG CAPSULE (FP) PO SCH ×3 (06:17→21:40)
[2017-12-22 08:57] LABS: ALBUMIN 3.3 g/dl (3.5-5.0); ALK PHOS 39 U/L (32-92); ANION GAP 3 (8-16); BLOOD UREA NITROGEN 23 mg/dl (7-18); CHLORIDE 108 mmol/L (98-107); CO2 30 mmol/L (22-28); CREATININE 0.8 mg/dl (0.6-1.3); GLUCOSE,RANDOM 80 mg/dl (74-106); HEMATOCRIT 31.8 % (32.4-45.2); HEMOGLOBIN 10.7 GM/dl (10.7-15.3); LYMPH % 14.3 % (8-40); MAGNESIUM 1.8 mg/dL (1.8-2.4); MCH 31.6 pg (25.7-33.7); MCHC 33.8 g/dl (32.0-36.0); MEAN CELL VOLUME 93.5 fl (80-96); MEAN PLT VOLUME 7.6 fl (7.5-11.1); MONO % 6.9 % (3.8-10.2); NEUT % 78.8 % (42.8-82.8); PLATELET COUNT 145 K/MM3 (134-434); POTASSIUM 3.7 mmol/L (3.5-5.1); RDW 13.4 % (11.6-15.6); SGOT/AST 28 U/L (10-42); SGPT/ALT 26 U/L (10-40); SODIUM 141 mmol/L (136-145); TOT PROT 6.3 g/dl (6.4-8.3); WHITE BLOOD COUNT 6.7 K/mm3 (4.0-10.8)
[2017-12-22] MEDS ORDERED: BENZOCAINE/MENTH/CETYLPYRD CL 1 EACH LOZENGE MM PRN (09:03)
--- NOTE | 2017-12-22 09:03 | PN ---
Progress Note, Physician History of Present Illness: Awake, alert Supine in bed C/O sore throat, cough productive of thick white sputum Temps down Afebrile - Current Medication List Current Medications: Active Medications Acetaminophen (Tylenol -) 650 mg PO Q4H PRN PRN Reason: FEVER Albuterol Sulfate (Ventolin 0.083% Nebulizer Soln -) 1 amp NEB Q6H [facility] Last Admin: 12/22/17 03:00 Dose: 1 amp Docusate Sodium (Colace -) 100 mg PO TID [facility] Last Admin: 12/22/17 06:17 Dose: Not Given Sodium Chloride (Normal Saline -) 1,000 mls @ 100 mls/hr IV ASDIR [facility] Last Admin: 12/21/17 17:52 Dose: 100 mls/hr Levofloxacin (Levaquin 250 Mg Premixed Ivpb -) 250 mg in 50 mls @ 50 mls/hr IVPB DAILY [facility] Last Admin: 12/21/17 10:00 Dose: 50 mls/hr Loratadine (Claritin -) 10 mg PO HS [facility] Last Admin: 12/21/17 21:34 Dose: 10 mg Losartan Potassium (Cozaar -) 100 mg PO DAILY [facility] Last Admin: 12/21/17 09:25 Dose: 100 mg Methylprednisolone Sodium Succinate (Solu-Medrol -) 40 mg IVPUSH DAILY [facility] Last Admin: 12/21/17 09:25 Dose: 40 mg Mometasone Furoate (Asmanex 220mcg -) 1 puff IH DAILY [facility] Last Admin: 12/21/17 09:25 Dose: 1 puff Ondansetron HCl (Zofran Injection) 4 mg IVPUSH Q6H PRN PRN Reason: NAUSEA Oseltamivir Phosphate (Tamiflu -) 30 mg PO BID [facility] Stop: 12/26/17 10:29 Last Admin: 12/21/17 21:34 Dose: 30 mg Ranitidine HCl (Zantac -) 300 mg PO DAILY [facility] Last Admin: 12/21/17 09:24 Dose: 300 mg Warfarin Sodium (Coumadin -) 4 mg PO DAILY@1800 [facility] Last Admin: 12/21/17 17:50 Dose: 4 mg - Objective Vital Signs: Vital Signs Temperature 98.5 F 12/22/17 06:10 Pulse Rate 85 12/22/17 06:10 Respiratory Rate 18 12/22/17 06:10 Blood Pressure 140/74 12/22/17 06:10 O2 Sat by Pulse Oximetry (%) 97 12/22/17 08:13 Constitutional: Yes: No Distress Eyes: Yes: Conjunctiva Clear HENT: Yes: Pharyngeal Erythema, Other (throat slightly injected No exudate) Cardiovascular: Yes: Regular Rate and Rhythm, S1, S2 Respiratory: Yes: Other (+ crepitations at bases bilaterally) Gastrointestinal: Yes: Normal Bowel Sounds, Soft. No: Tenderness Edema: Yes Labs: INR, PTT INR 2.72 (0.82-1.09) H 12/21/17 07:15 Assessment/Plan Acute influenza A Pharyngitis, likely secondary to influenza Leukopenia - improved COPD exacerbation ? Bacterial secondary infection PCN/ Macrolide allergies Throat c/s Continue Tamiflu/ Levaquin
[2017-12-22] MEDS ORDERED: PT OWN MED DRAWER 7, Y5N ONE ×2 (09:17→09:51)
[2017-12-22] MEDS: LOSARTAN POTASSIUM 50 MG TABLET (FP) PO SCH (09:42)
[2017-12-22] MEDS: methylPREDNISolone NA SUCC 40 MG/1 ML VIAL IVPUSH SCH (09:43)
[2017-12-22] MEDS: RANITIDINE HCL 150 MG TABLET (FP) PO SCH (09:43)
[2017-12-22] MEDS: OSELTAMIVIR PHOSPHATE 30 MG CAPSULE PO SCH ×2 (09:43→21:39)
[2017-12-22] MEDS: MOMETASONE FUROATE 220 MCG/IH INHALER IH SCH (09:44)
[2017-12-22 10:03] LABS: BILIRUBIN,TOTAL 0.3 mg/dl (0.2-1.0)
--- NOTE | 2017-12-22 10:41 | PN ---
Physical Exam: SUBJECTIVE: Patient seen and examined, reports ongoing moist cough, denies any chest pain or shortness of breath. OBJECTIVE: Vital Signs Period Temp Pulse Resp BP Sys/Awad Pulse Ox Last 24 Hr 98.2 F-98.5 F 48-85 18-20 123-161/55-74 95-98 GENERAL: The patient is awake, alert, and fully oriented, in no acute distress. HEAD: Normal with no signs of trauma. EYES: PERRL, extraocular movements intact, sclera anicteric, conjunctiva clear. No ptosis. ENT: Ears normal, nares patent, oropharynx clear without exudates, moist mucous membranes. NECK: Trachea midline, full range of motion, supple. LUNGS: Breath sounds equal, clear to auscultation bilaterally, no wheezes, no crackles, no accessory muscle use. HEART: Regular rate and rhythm, S1, S2 without murmur, rub or gallop. ABDOMEN: Soft, nontender, nondistended, normoactive bowel sounds, no guarding, no rebound, no hepatosplenomegaly, no masses. EXTREMITIES: 2+ pulses, warm, well-perfused, no edema. NEUROLOGICAL: Cranial nerves II through XII grossly intact. Normal speech, gait not observed. PSYCH: Normal mood, normal affect. SKIN: Warm, dry, normal turgor, no rashes or lesions noted Laboratory Results - last 24 hr 12/21/17 12/22/17 12/22/17 07:15 08:00 08:00 WBC 6.7 D RBC 3.40 L Hgb 10.7 Hct 31.8 L MCV 93.5 MCH 31.6 MCHC 33.8 RDW 13.4 Plt Count 145 MPV 7.6 Neutrophils % 78.8 Lymphocytes % 14.3 Monocytes % 6.9 Eosinophils % 0.0 Basophils % 0.0 Total Absolute Neuts No Result Required. Sodium 141 Potassium 3.7 Chloride 108 H Carbon Dioxide 30 H Anion Gap 3 L BUN 23 H Creatinine 0.8 Creat Clearance w eGFR > 60 Random Glucose 80 D Calcium 8.0 L Magnesium 1.8 Total Bilirubin 0.3 AST 28 ALT 26 Alkaline Phosphatase 39 Total Protein 6.3 L Albumin 3.3 L Active Medications Generic Name Dose Route Start Last Admin Trade Name Freq PRN Reason Stop Dose Admin Acetaminophen 650 mg 12/19/17 14:34 Tylenol - PO Q4H PRN FEVER Albuterol Sulfate 1 amp 12/19/17 15:00 12/22/17 09:30 Ventolin 0.083% Nebulizer Soln - NEB 1 amp Q6H LEYLA Administration Benzocaine/Menthol 1 each 12/22/17 09:03 Cepacol Lozenge - MM PRN PRN SORE THROAT Docusate Sodium 100 mg 12/19/17 22:00 12/22/17 06:17 Colace - PO Not Given TID LEYLA Sodium Chloride 1,000 mls @ 100 mls/hr 12/19/17 14:45 12/21/17 17:52 Normal Saline - IV 100 mls/hr ASDIR LEYLA Administration Levofloxacin 250 mg in 50 mls @ 50 mls/hr 12/21/17 10:00 12/22/17 09:40 Levaquin 250 Mg Premixed Ivpb - IVPB 50 mls/hr DAILY LEYLA Administration Loratadine 10 mg 12/19/17 22:00 12/21/17 21:34 Claritin - PO 10 mg HS LEYLA Administration Losartan Potassium 100 mg 12/21/17 10:00 12/22/17 09:42 Cozaar - PO 100 mg DAILY LEYLA Administration Methylprednisolone Sodium Succinate 40 mg 12/21/17 10:00 12/22/17 09:43 Solu-Medrol - IVPUSH 40 mg DAILY LEYLA Administration Mometasone Furoate 1 puff 12/20/17 10:00 12/22/17 09:44 Asmanex 220mcg - IH 1 puff DAILY LEYLA Administration Ondansetron HCl 4 mg 12/19/17 14:36 Zofran Injection IVPUSH Q6H PRN NAUSEA Oseltamivir Phosphate 30 mg 12/21/17 10:30 12/22/17 09:43 Tamiflu - PO 12/26/17 10:29 30 mg BID LEYLA Administration Ranitidine HCl 300 mg 12/20/17 10:00 12/22/17 09:43 Zantac - PO 300 mg DAILY LEYLA Administration Warfarin Sodium 4 mg 12/20/17 18:00 12/21/17 17:50 Coumadin - PO 4 mg DAILY@1800 LEYLA Administration Microbiology 12/19/17 12:15 Blood - Peripheral Venous Blood Culture - Preliminary NO GROWTH OBTAINED AFTER 72 HOURS, INCUBATION TO CONTINUE FOR 2 DAYS. 12/19/17 12:00 Blood - Peripheral Venous Blood Culture - Preliminary NO GROWTH OBTAINED AFTER 72 HOURS, INCUBATION TO CONTINUE FOR 2 DAYS. 12/22/17 09:10 Throat Group A Strep Rapid Antigen - Final 12/19/17 12:50 Urine - Urine Clean Catch Urine Culture - Final NO GROWTH OBTAINED 12/19/17 12:00 Nasopharyngeal Swab Influenza Types A,B Antigen (LUISA) - Final , + influenza A 12/19/17 12:00 Nasopharyngeal Swab - Final ASSESSMENT/PLAN: 1. Sepsis secondary to influenza - resolved, continue on Tamiflu 30 mg bid for CrCl <60 - continue empiric levaquin -Acetaminophen prn fever - blood cultures, negative to date - repeat chest xray today, no acute infilitrate or effusion, moderate cardiomegly - ID consulted and following 2. COPD exacerbation, symptoms improving -Solu-Medrol 40mg IVPB daily -Albuterol nebs q6h standing -Substitute Asmanex for home Qvar -Continue supplemental O2 3. Afib -afib, Hr 100's restart cardizem, start cardiac monitoring -Continue warfardin per INR 4. Ppx -Therapeutic AC DISPO: Requires inpatient services Visit type - Emergency Visit Emergency Visit: Yes ED Registration Date: 12/19/17 Care time: The patient presented to the Emergency Department on the above date and was hospitalized for further evaluation of their emergent condition. - New Patient This patient is new to me today: Yes Date on this admission: 12/24/17 - Critical Care Critical Care patient: No - Discharge Referral Referred to [facility] Med P.C.: No
[2017-12-22] MEDS ORDERED: MAGNESIUM SULF 50% (8.12 MEQ/2 ML-1 GM VIAL) IVPB ONE (13:18)
[2017-12-22] MEDS ORDERED: MAGNESIUM 1GM/D5W - 1 GM/100 ML IVPB IVPB ONE (13:30)
[2017-12-22] MEDS: dilTIAZem HCL 30 MG TABLET (FP) PO SCH ×2 (14:16→21:40)
[2017-12-22] MEDS: WARFARIN NA 2 MG TABLET (UD) PO SCH (18:00)
[2017-12-22] MEDS: LORATADINE 10 MG TABLET PO SCH (21:40)
[2017-12-23] MEDS: ALBUTEROL SO4 0.083% IH SOL 2.5 MG/3 ML VIAL.NEB. NEB SCH ×4 (06:32→22:11)
[2017-12-23] MEDS: DOCUSATE SODIUM 100 MG CAPSULE (FP) PO SCH ×3 (06:34→22:10)
[2017-12-23] MEDS ORDERED: BECLOMETHASONE DIPROPIONATE IH SCH (07:00)
[2017-12-23 08:48] LABS: BASO % 0.1 % (0-2.0); HEMATOCRIT 31.9 % (32.4-45.2); HEMOGLOBIN 10.7 GM/dl (10.7-15.3); LYMPH % 26.5 % (8-40); MCH 31.3 pg (25.7-33.7); MCHC 33.7 g/dl (32.0-36.0); MEAN CELL VOLUME 93.1 fl (80-96); MEAN PLT VOLUME 7.4 fl (7.5-11.1); NEUT % 64.4 % (42.8-82.8); PLATELET COUNT 165 K/MM3 (134-434); RBC 3.43 M/mm3 (3.60-5.2); RDW 13.5 % (11.6-15.6); WHITE BLOOD COUNT 5.1 K/mm3 (4.0-10.8)
[2017-12-23 09:03] LABS: INR 3.56 (0.82-1.09); PROTHROMBIN TIME (PATIENT) 38.9 SEC (10.2-13.0)
[2017-12-23 09:06] LABS: ANION GAP 5 (8-16); BLOOD UREA NITROGEN 18 mg/dl (7-18); CALCIUM 8.4 mg/dl (8.4-10.2); CHLORIDE 105 mmol/L (98-107); CO2 29 mmol/L (22-28); CREATININE 0.8 mg/dl (0.6-1.3); GLUCOSE,RANDOM 79 mg/dl (74-106); MAGNESIUM 2.1 mg/dL (1.8-2.4); PHOSPHOROUS 2.2 mg/dl (2.5-4.6); POTASSIUM 3.9 mmol/L (3.5-5.1); SODIUM 139 mmol/L (136-145)
[2017-12-23] MEDS: LOSARTAN POTASSIUM 50 MG TABLET (FP) PO SCH (09:42)
[2017-12-23] MEDS: dilTIAZem HCL 30 MG TABLET (FP) PO SCH ×2 (09:42→22:11)
[2017-12-23] MEDS: OSELTAMIVIR PHOSPHATE 30 MG CAPSULE PO SCH ×2 (09:42→22:12)
[2017-12-23] MEDS: RANITIDINE HCL 150 MG TABLET (FP) PO SCH (09:42)
[2017-12-23] MEDS: MOMETASONE FUROATE 220 MCG/IH INHALER IH SCH (09:43)
[2017-12-23] MEDS: methylPREDNISolone NA SUCC 40 MG/1 ML VIAL IVPUSH SCH (09:43)
[2017-12-23] MEDS ORDERED: PT OWN MED DRAWER 7, Y5N ONE (09:47)
--- NOTE | 2017-12-23 12:34 | PN ---
Physical Exam: SUBJECTIVE: Patient seen and examined OBJECTIVE: Vital Signs Period Temp Pulse Resp BP Sys/Awad Pulse Ox Last 24 Hr 98.3 F-98.9 F 71-88 19-20 124-158/74-97 95-100 GENERAL: The patient is awake, alert, and fully oriented, in no acute distress. HEAD: Normal with no signs of trauma. EYES: PERRL, extraocular movements intact, sclera anicteric, conjunctiva clear. No ptosis. ENT: Ears normal, nares patent, oropharynx clear without exudates, moist mucous membranes. NECK: Trachea midline, full range of motion, supple. LUNGS: Breath sounds equal, clear to auscultation bilaterally, no wheezes, no crackles, no accessory muscle use. HEART: Regular rate and rhythm, S1, S2 without murmur, rub or gallop. ABDOMEN: Soft, nontender, nondistended, normoactive bowel sounds, no guarding, no rebound, no hepatosplenomegaly, no masses. EXTREMITIES: 2+ pulses, warm, well-perfused, no edema. NEUROLOGICAL: Cranial nerves II through XII grossly intact. Normal speech, gait not observed. PSYCH: Normal mood, normal affect. SKIN: Warm, dry, normal turgor, no rashes or lesions noted Laboratory Results - last 24 hr 12/23/17 12/23/17 12/23/17 08:15 08:15 08:15 WBC 5.1 RBC 3.43 L Hgb 10.7 Hct 31.9 L MCV 93.1 MCH 31.3 MCHC 33.7 RDW 13.5 Plt Count 165 MPV 7.4 L Neutrophils % 64.4 Lymphocytes % 26.5 Monocytes % 9.0 Eosinophils % 0.0 Basophils % 0.1 PT with INR 38.9 H INR 3.56 H Sodium 139 Potassium 3.9 Chloride 105 Carbon Dioxide 29 H Anion Gap 5 L BUN 18 D Creatinine 0.8 Random Glucose 79 Calcium 8.4 Phosphorus 2.2 L Magnesium 2.1 Active Medications Generic Name Dose Route Start Last Admin Trade Name Freq PRN Reason Stop Dose Admin Acetaminophen 650 mg 12/19/17 14:34 Tylenol - PO Q4H PRN FEVER Albuterol Sulfate 1 amp 12/19/17 15:00 12/23/17 08:15 Ventolin 0.083% Nebulizer Soln - NEB 1 amp Q6H LEYLA Administration Atorvastatin Calcium 10 mg 12/23/17 22:00 Lipitor - PO HS LEYLA Benzocaine/Menthol 1 each 12/22/17 09:03 12/22/17 14:16 Cepacol Lozenge - MM 1 each PRN PRN Administration SORE THROAT Diltiazem HCl 30 mg 12/22/17 13:45 12/23/17 09:42 Cardizem - PO 30 mg BID LEYLA Administration Docusate Sodium 100 mg 12/19/17 22:00 12/23/17 06:34 Colace - PO 100 mg TID LEYLA Administration Levofloxacin 250 mg in 50 mls @ 50 mls/hr 12/21/17 10:00 12/23/17 09:43 Levaquin 250 Mg Premixed Ivpb - IVPB 50 mls/hr DAILY LEYLA Administration Loratadine 10 mg 12/19/17 22:00 12/22/17 21:40 Claritin - PO 10 mg HS [facility] Administration Losartan Potassium 100 mg 12/21/17 10:00 12/23/17 09:42 Cozaar - PO 100 mg DAILY LEYLA Administration Methylprednisolone Sodium Succinate 40 mg 12/21/17 10:00 12/23/17 09:43 Solu-Medrol - IVPUSH 40 mg DAILY LEYLA Administration Mometasone Furoate 1 puff 12/20/17 10:00 12/23/17 09:43 Asmanex 220mcg - IH 1 puff DAILY LEYLA Administration Non-Formulary Medication 2 puff 12/23/17 07:00 Beclomethasone Dipropionate [Qvar] [facility] Ondansetron HCl 4 mg 12/19/17 14:36 Zofran Injection IVPUSH Q6H PRN NAUSEA Oseltamivir Phosphate 30 mg 12/21/17 10:30 12/23/17 09:42 Tamiflu - PO 12/26/17 10:29 30 mg BID LEYLA Administration Ranitidine HCl 300 mg 12/20/17 10:00 12/23/17 09:42 Zantac - PO 300 mg DAILY LEYLA Administration Warfarin Sodium 4 mg 12/20/17 18:00 12/22/17 18:00 Coumadin - PO 4 mg DAILY@1800 LEYLA Administration ASSESSMENT/PLAN:
--- NOTE | 2017-12-23 15:39 | PN ---
Physical Exam: SUBJECTIVE: Patient seen and examined, ambulatory at bedside, denies any chest pain or shortness of breath, does report intermittent cough OBJECTIVE: patient is a 87 year old female with a history of HLD, COPD on home O2, and Afib on warfarin/diltiazem, admitted from the emergency department for sepsis, influenza. Vital Signs Period Temp Pulse Resp BP Sys/Aawd Pulse Ox Last 24 Hr 97.7 F-98.4 F 62-88 20-20 128-158/77-97 96-100 GENERAL: The patient is awake, alert, and fully oriented, in no acute distress. HEAD: Normal with no signs of trauma. EYES: PERRL, extraocular movements intact, sclera anicteric, conjunctiva clear. No ptosis. ENT: Ears normal, nares patent, oropharynx clear without exudates, moist mucous membranes. NECK: Trachea midline, full range of motion, supple. LUNGS: Breath sounds equal, clear to auscultation bilaterally, no wheezes, no crackles, no accessory muscle use. HEART: irregular rate and rhythm, S1, S2 without murmur, rub or gallop. ABDOMEN: Soft, nontender, nondistended, normoactive bowel sounds, no guarding, no rebound, no hepatosplenomegaly, no masses. EXTREMITIES: 2+ pulses, warm, well-perfused, no edema. NEUROLOGICAL: Cranial nerves II through XII grossly intact. Normal speech, gait not observed. PSYCH: Normal mood, normal affect. SKIN: Warm, dry, normal turgor, no rashes or lesions noted Laboratory Results - last 24 hr 12/23/17 12/23/17 12/23/17 08:15 08:15 08:15 WBC 5.1 RBC 3.43 L Hgb 10.7 Hct 31.9 L MCV 93.1 MCH 31.3 MCHC 33.7 RDW 13.5 Plt Count 165 MPV 7.4 L Neutrophils % 64.4 Lymphocytes % 26.5 Monocytes % 9.0 Eosinophils % 0.0 Basophils % 0.1 PT with INR 38.9 H INR 3.56 H Sodium 139 Potassium 3.9 Chloride 105 Carbon Dioxide 29 H Anion Gap 5 L BUN 18 D Creatinine 0.8 Random Glucose 79 Calcium 8.4 Phosphorus 2.2 L Magnesium 2.1 Active Medications Generic Name Dose Route Start Last Admin Trade Name Freq PRN Reason Stop Dose Admin Acetaminophen 650 mg 12/19/17 14:34 Tylenol - PO Q4H PRN FEVER Albuterol Sulfate 1 amp 12/19/17 15:00 12/23/17 14:16 Ventolin 0.083% Nebulizer Soln - NEB 1 amp Q6H LEYLA Administration Atorvastatin Calcium 10 mg 12/23/17 22:00 Lipitor - PO HS LEYLA Benzocaine/Menthol 1 each 12/22/17 09:03 12/22/17 14:16 Cepacol Lozenge - MM 1 each PRN PRN Administration SORE THROAT Diltiazem HCl 30 mg 12/22/17 13:45 12/23/17 09:42 Cardizem - PO 30 mg BID [facility] Administration Docusate Sodium 100 mg 12/19/17 22:00 12/23/17 14:50 Colace - PO 100 mg TID LEYLA Administration Levofloxacin 250 mg in 50 mls @ 50 mls/hr 12/21/17 10:00 12/23/17 09:43 Levaquin 250 Mg Premixed Ivpb - IVPB 50 mls/hr DAILY [facility] Administration Loratadine 10 mg 12/19/17 22:00 12/22/17 21:40 Claritin - PO 10 mg HS [facility] Administration Losartan Potassium 100 mg 12/21/17 10:00 12/23/17 09:42 Cozaar - PO 100 mg DAILY [facility] Administration Methylprednisolone Sodium Succinate 40 mg 12/21/17 10:00 12/23/17 09:43 Solu-Medrol - IVPUSH 40 mg DAILY [facility] Administration Mometasone Furoate 1 puff 12/20/17 10:00 12/23/17 09:43 Asmanex 220mcg - IH 1 puff DAILY [facility] Administration Non-Formulary Medication 2 puff 12/23/17 07:00 Beclomethasone Dipropionate [Qvar] IH AM [facility] Ondansetron HCl 4 mg 12/19/17 14:36 Zofran Injection IVPUSH Q6H PRN NAUSEA Oseltamivir Phosphate 30 mg 12/21/17 10:30 12/23/17 09:42 Tamiflu - PO 12/26/17 10:29 30 mg BID LEYLA Administration Ranitidine HCl 300 mg 12/20/17 10:00 12/23/17 09:42 Zantac - PO 300 mg DAILY LEYLA Administration Warfarin Sodium 4 mg 12/20/17 18:00 12/22/17 18:00 Coumadin - PO 4 mg DAILY@1800 LEYLA Administration Microbiology 12/19/17 12:15 Blood - Peripheral Venous Blood Culture - Preliminary NO GROWTH OBTAINED AFTER 96 HOURS, INCUBATION TO CONTINUE FOR 1 DAYS. 12/19/17 12:00 Blood - Peripheral Venous Blood Culture - Preliminary NO GROWTH OBTAINED AFTER 96 HOURS, INCUBATION TO CONTINUE FOR 1 DAYS. 12/21/17 12:45 Sputum - Expectorated Sputum Culture - Preliminary Yeast Like Organism 12/22/17 09:10 Throat Throat Culture - Final NO BETA HEMOLYTIC STREPTOCOCCI ISOLATED 12/22/17 09:10 Throat Group A Strep Rapid Antigen - Final 12/19/17 12:50 Urine - Urine Clean Catch Urine Culture - Final NO GROWTH OBTAINED 12/19/17 12:00 Nasopharyngeal Swab Influenza Types A,B Antigen (LUISA) - Final , + influenza A 12/19/17 12:00 Nasopharyngeal Swab - Final ASSESSMENT/PLAN: 1. Sepsis secondary to influenza - resolved, continue on Tamiflu 30 mg bid for CrCl <60 - continue empiric levaquin -Acetaminophen prn fever - blood cultures, negative to date, pending sputum culture - chest xray (12/22/17) , no acute infilitrate or effusion, moderate cardiomegly - ID consulted and following 2. COPD exacerbation, symptoms improving -Solu-Medrol 40mg IVPB daily -Albuterol nebs q6h standing -Substitute Asmanex for home Qvar -Continue supplemental O2 3. Afib -afib, rate controlled, continue cardiac monitoring - hold warfarin elevated INR 4. Ppx -Therapeutic AC DISPO: Requires inpatient services Visit type - Emergency Visit Emergency Visit: Yes ED Registration Date: 12/19/17 Care time: The patient presented to the Emergency Department on the above date and was hospitalized for further evaluation of their emergent condition. - New Patient This patient is new to me today: No - Critical Care Critical Care patient: No - Discharge Referral Referred to [facility] Med P.C.: No
[2017-12-23] MEDS ORDERED: ATORVASTATIN CA 10 MG TABLET (FP) PO SCH (22:00)
[2017-12-23] MEDS: LORATADINE 10 MG TABLET PO SCH (22:11)
[2017-12-24] MEDS: ALBUTEROL SO4 0.083% IH SOL 2.5 MG/3 ML VIAL.NEB. NEB SCH ×2 (05:07→08:30)
[2017-12-24] MEDS: DOCUSATE SODIUM 100 MG CAPSULE (FP) PO SCH (05:15)
[2017-12-24] MEDS: LOSARTAN POTASSIUM 50 MG TABLET (FP) PO SCH ×2 (06:13→10:30)
[2017-12-24] MEDS: dilTIAZem HCL 30 MG TABLET (FP) PO SCH ×2 (06:14→10:29)
[2017-12-24 06:26] VITALS: TEMP 97.8
--- NOTE | 2017-12-24 09:36 | DS ---
Physical Exam: SUBJECTIVE: Patient seen and examined, sitting in bedside chair, denies any chest pain or shortness of breath, reports feeling much improved, ready for discharge. OBJECTIVE:This is an 87 year old female with a history of HLD, COPD on home O2, and Afib on warfarin/diltiazem who presented to the ED today with weakness, fever, dry cough, and shortness of breath for the past several days. She also notes that she has had poor difficulty breathing for the past few days. She has had poor appetite and little intake. She denies chest pain, palpitations, or any other symptoms. ER course was notable for: (1) SIRS (temp 101.3, WBC 2.6) (2) Pos influenza A (3) CXR: No infiltrates Vital Signs Period Temp Pulse Resp BP Sys/Awad Pulse Ox Last 24 Hr 97.7 F-98.6 F 62-91 18-20 128-150/77-103 96-100 PHYSICAL EXAM GENERAL: The patient is awake, alert, and fully oriented, in no acute distress. HEAD: Normal with no signs of trauma. EYES: PERRL, extraocular movements intact, sclera anicteric, conjunctiva clear. ENT: Ears normal, nares patent, oropharynx clear without exudates, moist mucous membranes. NECK: Trachea midline, full range of motion, supple. LUNGS: Breath sounds equal, clear to auscultation bilaterally, course rhonchi to bases, no wheezes, no crackles, no accessory muscle use. HEART: Regular rate and rhythm, S1, S2 without murmur, rub or gallop. ABDOMEN: Soft, nontender, nondistended, normoactive bowel sounds, no guarding, no rebound, no hepatosplenomegaly, no masses. EXTREMITIES: 2+ pulses, warm, well-perfused, no edema. NEUROLOGICAL: Cranial nerves II through XII grossly intact. Normal speech, gait not observed. PSYCH: Normal mood, normal affect. SKIN: Warm, dry, normal turgor, no rashes or lesions noted. LABS CBC WBC 5.1 K/mm3 (4.0-10.8) 12/23/17 08:15 RBC 3.43 M/mm3 (3.60-5.2) L 12/23/17 08:15 Hgb 10.7 GM/dl (10.7-15.3) 12/23/17 08:15 Hct 31.9 % (32.4-45.2) L 12/23/17 08:15 MCV 93.1 fl (80-96) 12/23/17 08:15 MCH 31.3 pg (25.7-33.7) 12/23/17 08:15 MCHC 33.7 g/dl (32.0-36.0) 12/23/17 08:15 RDW 13.5 % (11.6-15.6) 12/23/17 08:15 Plt Count 165 K/MM3 (134-434) 12/23/17 08:15 MPV 7.4 fl (7.5-11.1) L 12/23/17 08:15 Neutrophils % 64.4 % (42.8-82.8) 12/23/17 08:15 Neutrophils % (Manual) 44.0 % (42.8-82.8) 12/19/17 12:00 Lymphocytes % 26.5 % (8-40) 12/23/17 08:15 Lymphocytes % (Manual) 40.0 % (8-40) 12/19/17 12:00 Monocytes % 9.0 % (3.8-10.2) 12/23/17 08:15 Monocytes % (Manual) 16 % (3.8-10.2) H* 12/19/17 12:00 Eosinophils % 0.0 % (0-4.5) 12/23/17 08:15 Basophils % 0.1 % (0-2.0) 12/23/17 08:15 Total Absolute Neuts No Result Required. 12/21/17 07:15 Platelet Estimate Decreased 12/19/17 12:00 CMP Sodium 139 mmol/L (136-145) 12/23/17 08:15 Potassium 3.9 mmol/L (3.5-5.1) 12/23/17 08:15 Chloride 105 mmol/L (98-107) 12/23/17 08:15 Carbon Dioxide 29 mmol/L (22-28) H 12/23/17 08:15 Anion Gap 5 (8-16) L 12/23/17 08:15 BUN 18 mg/dl (7-18) D 12/23/17 08:15 Creatinine 0.8 mg/dl (0.6-1.3) 12/23/17 08:15 Creat Clearance w eGFR > 60 (>60) 12/22/17 08:00 Random Glucose 79 mg/dl (74-106) 12/23/17 08:15 Lactic Acid 0.8 mmol/L (0.0-2.0) 12/19/17 12:24 Calcium 8.4 mg/dl (8.4-10.2) 12/23/17 08:15 Phosphorus 2.2 mg/dl (2.5-4.6) L 12/23/17 08:15 Magnesium 2.1 mg/dL (1.8-2.4) 12/23/17 08:15 Total Bilirubin 0.3 mg/dl (0.2-1.0) 12/22/17 08:00 AST 28 U/L (10-42) 12/22/17 08:00 ALT 26 U/L (10-40) 12/22/17 08:00 Alkaline Phosphatase 39 U/L (32-92) 12/22/17 08:00 Creatine Kinase 228 IU/L (26-192) H 12/19/17 12:00 Creatine Kinase Index 0.7 % (0.0-5.0) 12/19/17 12:00 CK-MB (CK-2) 1.7 ng/mL (0.3-4.0) 12/19/17 12:00 Troponin I 0.06 ng/ml (0.03-0.50) 12/19/17 12:00 Total Protein 6.3 g/dl (6.4-8.3) L 12/22/17 08:00 Albumin 3.3 g/dl (3.5-5.0) L 12/22/17 08:00 Microbiology 12/19/17 12:15 Blood - Peripheral Venous Blood Culture - Preliminary NO GROWTH OBTAINED AFTER 96 HOURS, INCUBATION TO CONTINUE FOR 1 DAYS. 12/19/17 12:00 Blood - Peripheral Venous Blood Culture - Preliminary NO GROWTH OBTAINED AFTER 96 HOURS, INCUBATION TO CONTINUE FOR 1 DAYS. 12/21/17 12:45 Sputum - Expectorated Sputum Culture - Preliminary Yeast Like Organism 12/22/17 09:10 Throat Throat Culture - Final NO BETA HEMOLYTIC STREPTOCOCCI ISOLATED 12/22/17 09:10 Throat Group A Strep Rapid Antigen - Final 12/19/17 12:50 Urine - Urine Clean Catch Urine Culture - Final NO GROWTH OBTAINED 12/19/17 12:00 Nasopharyngeal Swab Influenza Types A,B Antigen (LUISA) - Final , + influenza A 12/19/17 12:00 Nasopharyngeal Swab - Final HOSPITAL COURSE: 1. Sepsis secondary to influenza, resolved, treated with Tamiflu 30 mg bid for CrCl <60 and empiric levaquin. chest xray (12/22/17) , no acute infilitrate or effusion, moderate cardiomegly, ID physician Dr Powell consulted and followed. 2. COPD exacerbation, improved, with solumedrol 40 mg iv daily, standing albuterol nebulizers, Substituted Asmanex for home Qvar, Continued supplemental home O2 3. Afib, afib, rate controlled, continue home dose cardizem, cardiac monitoring. Date of Admission:12/19/17 Date of Discharge: 12/24/17 Minutes to complete discharge: 45 Discharge Summary Reason For Visit: COUGH, DIFF BREATHING, FEVER Current Active Problems Fever (Acute) Influenza (Acute) Neutropenia associated with infectious disease (Acute) Condition: Stable - Instructions Referrals: Rahul Sykes MD [Primary Care Provider] - - Home Medications Comprehensive Discharge Medication List: Ambulatory Orders Warfarin Sodium [Coumadin] 4 mg PO ASDIR tablet 08/03/13 Beclomethasone Dipropionate [Qvar] 2 puff IH AM inhaler 06/27/15 Psyllium Husk [Metamucil] 0.52 gm PO 1-2 HS capsule 04/02/16 Hydrochlorothiazide 12.5 mg PO DAILY tablet 04/28/16 Diltiazem HCl 30 mg PO BID tablet 07/16/16 Loratadine [Claritin] 10 mg PO HS 12/19/17 This patient is new to me today: No Emergency Visit: Yes ED Registration Date: 12/19/17 Care time: The patient presented to the Emergency Department on the above date and was hospitalized for further evaluation of their emergent condition. Critical Care patient: No - Discharge Referral Referred to [facility] Med P.C.: Yes Physician Referral: Rahul Sykes MD (Int Med)
[2017-12-24] MEDS ORDERED: PT OWN MED DRAWER 7, Y5N ONE (10:23)
[2017-12-24] MEDS: OSELTAMIVIR PHOSPHATE 30 MG CAPSULE PO SCH (10:30)
[2017-12-24] MEDS: MOMETASONE FUROATE 220 MCG/IH INHALER IH SCH (10:32)
[2017-12-24] MEDS: RANITIDINE HCL 150 MG TABLET (FP) PO SCH (10:32)
[2017-12-24] MEDS: methylPREDNISolone NA SUCC 40 MG/1 ML VIAL IVPUSH SCH (10:32)
[2017-12-24 10:46] VITALS: BP 150/77; PULSE 97
== END 2017-12-24 11:30 | disposition home health service (06) | DRG 872 ==
LOC: FER 11:35 → FM/S 15:16
PROVIDERS: ADMIT Hospitalist; ATTEND Nurse Practitioner Family
DX: A41.9 Sepsis, unspecified organism (principal); J44.1 Chronic obstructive pulmonary disease with (acute) exacerbation; I48.91 Unspecified atrial fibrillation; J10.1 Influenza due to other identified influenza virus with other respiratory manifestations; J02.9 Acute pharyngitis, unspecified; D72.819 Decreased white blood cell count, unspecified; D70.3 Neutropenia due to infection; I10 Essential (primary) hypertension; E78.5 Hyperlipidemia, unspecified
CPT/HCPCS: 36415; 71045-TC; 71046-TC-FY; 80048; 80053; 81003; 82550; 82553; 82803; 83605; 83735; 84100; 84484; 85025; 85610; 85730; 87040; 87070; 87086; 87205; 87430; 87804; 93005; 94010; 94640; 97116-GP; 97161-GP; 99285-25